=== PATIENT | male | born 1970 | race Caucasian/White ===

== ENCOUNTER 2018-10-04 02:40 | Emergency (ER) | payer BC, OTHER ==
[2018-10-04] MEDS ORDERED: AMOXICILLIN/POTASSIUM CLAV 875-125 TABLET PO ONE (02:51)
== END 2018-10-04 03:13 | disposition home or self-care (01) ==
LOC: EDH 02:40
DX: S20.211A Contusion of right front wall of thorax, initial encounter (principal); I10 Essential (primary) hypertension; Y04.1XXA Assault by human bite, initial encounter; Y93.89 Activity, other specified; Y92.488 Other paved roadways as the place of occurrence of the external cause; Y99.8 Other external cause status

== ENCOUNTER 2024-12-14 06:26 | Day surgery (SDC) | payer OTHER ==
[2024-12-14] VITALS (10 sets, daily range): BP systolic 98–122; BP diastolic 62–91; PULSE 76–93; RESP 15–18; TEMP 97.6–99
[~2024-12-14] VITALS: Ht 177.8 cm; Wt 93.0 kg
[~2024-12-14 06:26] MED LIST: ATOR10 PO; LISI10TA24 PO
[2024-12-14] MEDS: 0.9%NACL 1000ML 1,000 ML IV ONE (07:00)
== END 2024-12-14 10:13 | disposition home or self-care (01) ==
LOC: ENDO 06:26 → DAH 06:26 → ENDO 10:13
PROVIDERS: ATTEND Internal Medicine Gastroenterology
DX: K92.1 Melena (principal); K62.1 Rectal polyp; K31.89 Other diseases of stomach and duodenum; K44.9 Diaphragmatic hernia without obstruction or gangrene; K21.00 Gastro-esophageal reflux disease with esophagitis, without bleeding; R12 Heartburn; R13.10 Dysphagia, unspecified; F41.9 Anxiety disorder, unspecified; R19.7 Diarrhea, unspecified; I10 Essential (primary) hypertension; E78.5 Hyperlipidemia, unspecified; Z89.429 Acquired absence of other toe(s), unspecified side; Z79.899 Other long term (current) drug therapy; Z90.49 Acquired absence of other specified parts of digestive tract; Z98.890 Other specified postprocedural states
CPT/HCPCS: 43239; 45380; J7030 ×2; J2704 ×2; A4620; A4215 ×2; A4223; A4657 ×2; A7002; A4222; A4221; A4663; A4606; J3490